=== PATIENT | female | born 1995 | race American Indian/Alaskan Native ===

== ENCOUNTER 2017-06-11 16:39 | Inpatient (IN) | payer MEDICAID ==
[2017-06-11] MEDS ORDERED: LACTATED RINGERS 500 ML IV ONE (16:48)
[2017-06-11 17:09] LABS: Bilirubin,Urine NEG (Negative); Blood,Urine NEG (Negative); Ketones,Urine 20 mg/dL (Negative); Leukocyte Esterase,Urine TR (Negative); Mucus,Urine 3+ /HPF; Nitrite,Urine NEG (Negative); WBC,Urine < 1.0 /HPF (0.0-6.0)
[2017-06-11] MEDS: BRETHINE SUB-Q PRN ×3 (17:50→18:33)
[2017-06-11 18:14] LABS: Urine Drugs of Abuse Note Disclamer
[2017-06-11] MEDS ORDERED: LACTATED RINGERS 1,000 ML IV ONE (18:36)
[2017-06-11] MEDS ORDERED: MAGNESIUM SULFATE 4GM/100ML 4 GM/100 ML BAG IV ONE (19:00)
[2017-06-11] MEDS ORDERED: BENADRYL PO PRN (19:31)
[2017-06-11] MEDS ORDERED: DEEP SEA NS PRN (19:31)
[2017-06-11] MEDS ORDERED: SUDAFED PO PRN (19:31)
[2017-06-11] MEDS ORDERED: ZOFRAN IV PRN (19:31)
[2017-06-11] MEDS ORDERED: COLACE PO PRN (19:31)
[2017-06-11] MEDS ORDERED: TYLENOL PO PRN (19:31)
[2017-06-11] MEDS ORDERED: MILK OF MAGNESIA PO PRN (19:31)
[2017-06-11] MEDS ORDERED: TUCKS PAD TP PRN (19:31)
[2017-06-11] MEDS ORDERED: ALUM-MAG HYDROX-SIMETH 200-200-20MG/5ML PO PRN (19:31)
--- NOTE | 2017-06-11 19:34 | History and Physical Report ---
History of Present Illness Date of examination: 06/11/17 Chief complaint: 32 weeks, receives care in [facility], c/o contractions. She is here visiting the [facility]. Patient reports cramping began @ 1430 and was made worse by intercourse @ 1500. Patient initially denied recent intercourse so FFN was collected prior to SVE, She later admitted to intercourse after test resulted positive. History of present illness: 21Y/O Medical HX: diabetes type 1 dx age 8 on insulin - states she has not taken any insulin since last in 2008. reports takes "an antibotic twice a day for my diabetic cysts" - does not know name of antibiotic and does not have it with her. former smoker and THC user, denies recent use during . Surgical hx: right arm for "diabetic cysts' denies HX STI OB hx: began care @ 8 weeks with [facility] in [place], [place]. Dr. Arreaga. assigned EDC 08/06/17 by LMP reports passing 1hGTT, no problems with . Patient was not referred to perinatologist by primary OBGYN. 2009 - Vaginal del @ 32 weeks, 4#, PTL with PROM. 2012 - SAB Past History Past Medical History: diabetes Past Surgical History: other (right arm - diabetic cyst) [employer] History: denies: chlamydia, gonorrhea, hepatitis B, hepatitis C, herpes, HIV , syphilis, trichomonas Social history: single - Obstetrical History Expected Date of Delivery: 08/06/17 Actual Gestation: 32 Week(s) 0 Day(s) : 3 Para: 1 Hx # Term Pregnancies: 0 Number of Pregnancies: 1 Spontaneous Abortions: 1 Induced : 0 Number of Living Children: 1 Medications and Allergies Allergies Allergy/AdvReac Type Severity Reaction Status Date / Time No Known Allergies Allergy Unverified 06/11/17 16:48 Home Medications Medication Instructions Recorded Confirmed Last Taken Type No Known Home Medications [No 06/11/17 06/11/17 Unknown History Reported Home Medications] Active Meds: Active Medications Betamethasone Acet/Betameth SodPhos (Celestone Soluspan) 12 mg IM Q24H GIA Lactated Ringer's (Lactated Ringers) 1,000 mls @ 999 mls/hr IV BOLUS ONE Stop: 06/11/17 19:36 Magnesium Sulfate (Magnesium Sulfate 40gm/1000ml) 40 gm in 1,000 mls @ 50 mls/ hr IV DIRECT GIA PRN Reason: 2 GM/HR Lactated Ringer's (Lactated Ringers) 1,000 mls @ 75 mls/hr IV DIRECT GIA Terbutaline Sulfate (Brethine) 0.25 mg SUB-Q ONCE PRN PRN Reason: contractions Last Admin: 06/11/17 18:33 Dose: 0.25 mg Review of Systems All systems: negative - Vital Signs Vital signs: Vital Signs Pulse BP 72 125/79 06/11/17 16:54 06/11/17 16:54 Temp Pulse Resp BP Pulse Ox 98.6 F 107 H 18 131/65 99 06/11/17 17:09 06/11/17 19:10 06/11/17 17:09 06/11/17 18:54 06/11/17 19:10 - Physical Exam Breasts: Positive: normal Cardiovascular: Regular rate Lungs: Positive: Clear to auscultation, Normal air movement Abdomen: Positive: normal appearance, soft Genitourinary (Female): Positive: normal external genitalia, normal perenium Vulva: both: normal Vagina: Positive: normal moisture Uterus: Positive: normal size Anus/Rectum: Positive: normal perianal skin Extremities: Positive: normal Deep Tendon Reflex Grade: Normal +2 - Obstetrical FHR: category 1 Uterine Contraction Monitor Mode: External Cervical Dilatation: 2 (posterior) Cervical Effacement Percentage: 40 station: -1 Uterine Contraction Frequency (min): 3-5 Uterine Contraction Pattern: Regular Uterine Tone Measurement Phase: Contraction Uterine Contraction Intensity: Mild Results All other labs normal. Assessment and Plan 21y/o @ 32w0d, labor, GBS unknown, hx labor and delivery with last 2008. Plan for Mag sulfate, steroids and AMFM and NICU consult. Admission orders in EMR. Nursing staff to obtain records from [facility] fax # [phone]. Dr. Bettencourt consulted. - Patient Problems (1) 32 weeks gestation of Current Visit: Yes Status: Acute (2) labor in third trimester Onset Date: 06/11/17 Current Visit: Yes Status: Acute Qualifiers: labor delivery status: P Fetus number: single or unspecified fetus
[2017-06-11] MEDS ORDERED: LACTATED RINGERS 1,000 ML IV SCH (20:00)
[2017-06-11] MEDS: MAGNESIUM SULFATE 40GM/1000ML 40 GM/1,000 ML BAG IV SCH (20:33)
--- NOTE | 2017-06-11 20:36 | Ultrasound Report ---
FINAL REPORT PROCEDURE: US OB \T\gt; = 14 WEEKS FETUS TECHNIQUE: Real-time transabdominal sonography of the uterus, placenta, amniotic fluid, adnexa, and fetus was performed with image documentation. Measurements were obtained to determine age/size. M-mode Doppler was used to document heartbeat. CPT 15583 HISTORY: LABOR WALK IN COMPARISON: No prior studies are available for comparison. FINDINGS: ADDITIONAL GESTATION: None. GENERAL: IUP: Single living intrauterine . Position: Cephalic Placental position: Anterior grade 1, without previa. Amniotic fluid volume: Normal. MATERNAL: Uterus: Within normal limits. Cervical length: 2.4 cm. Internal Os: Closed. FETUS: Heart rate and rhythm: 154 beats per minute anatomic survey: Normal. MEASUREMENTS: BPD: 8.2 centimeters corresponding to 33 weeks and 0 days HC: 30.2 centimeters corresponding to 33 weeks and 4 days AC: 29.6 centimeters corresponding to 33 weeks 3 days FL: 6.5 centimeters corresponding to 33 weeks and 3 days Mean Gestational Age (composite criteria): 33 weeks and 2 days Ratio biometry: Normal. Estimated Weight: 2198 grams. Interval growth: Not applicable Estimated Due Date (earliest scan): 07/28/2017 IMPRESSION: Single intrauterine gestation at 33 weeks and 2 days. Estimated due date: 07/28/2017. Normal survey with appropriate growth.
[2017-06-11 20:46] LABS: Basophils % (Auto) 0.3 % (0.0-1.8); Eosinophils % (Auto) 0.2 % (0.0-4.3); Hematocrit 25.9 % (30.3-42.9); Hemoglobin 8.5 gm/dl (10.1-14.3); Mean Corpuscular HGB Conc 33 % (30-34); Mean Corpuscular Volume 79 fl (79-97); Platelet Count 263 K/mm3 (140-440); Red Cell Distribution Width 16.6 % (13.2-15.2); White Blood Count 10.7 K/mm3 (4.5-11.0)
[2017-06-11 20:47] LABS: Mean Corpuscular Hemoglobin 26 pg (28-32)
[2017-06-11] MEDS: CELESTONE SOLUSPAN IM SCH (20:53)
[2017-06-11 20:55] LABS: Alanine Aminotransferase 7 units/L (7-56); Albumin/Globulin Ratio 0.8 %; Alkaline Phosphatase 104 units/L (35-129); Anion Gap 21 mmol/L; Blood Urea Nitrogen 5 mg/dL (7-17); Calcium 8.2 mg/dL (8.4-10.2); Carbon Dioxide 17 mmol/L (22-30); Chloride 100.6 mmol/L (98-107); Glucose 103 mg/dL (65-100); Sodium 136 mmol/L (137-145); Total Protein 6.7 g/dL (6.3-8.2)
[2017-06-11] MEDS: AMBIEN PO PRN (22:59)
[2017-06-12] MEDS: LACTATED RINGERS 1,000 ML IV SCH (05:10)
--- NOTE | 2017-06-12 06:55 | Progress Note ---
Assessment and Plan - Patient Problems (1) 32 weeks gestation of Current Visit: Yes Status: Acute Plan to address problem: Pt sleeping soundly easily aroused. Pt states she perceives some mild ctx. VSS Uterus soft. MGSO4 infusing 0600 Mag level drawn Not resulted at time of note. Category 1 strip. IUP @ 32w1d with+fFN, poss PTL Pt had previous delivery @ 32 weeks. Pt receives PNC in [facility]. Second dose BMZ due 2052 today. P: continue POC. Consult with . Subjective - Subjective Date of service: 06/12/17 (pt c/o "small" ctx) Patient reports: movement normal Objective - Vital Signs Vital Signs: Vital Signs - 12hr 06/11/17 06/11/17 06/11/17 18:52 18:54 18:55 Temperature Pulse Rate 110 H 105 H 110 H Respiratory Rate Blood Pressure 131/65 O2 Sat by Pulse 99 99 99 Oximetry 06/11/17 06/11/17 06/11/17 19:00 19:05 19:10 Temperature Pulse Rate 119 H 105 H 107 H Respiratory Rate Blood Pressure O2 Sat by Pulse 99 99 99 Oximetry 06/11/17 06/11/17 06/11/17 19:33 19:35 19:38 Temperature Pulse Rate 101 H 100 H 104 H Respiratory Rate Blood Pressure 127/69 O2 Sat by Pulse 93 99 Oximetry 06/11/17 06/11/17 06/11/17 19:43 19:48 19:56 Temperature Pulse Rate 92 H 102 H 103 H Respiratory Rate Blood Pressure O2 Sat by Pulse 99 99 99 Oximetry 06/11/17 06/11/17 06/11/17 20:01 20:16 20:17 Temperature Pulse Rate 94 H 80 94 H Respiratory Rate Blood Pressure O2 Sat by Pulse 99 90 98 Oximetry 06/11/17 06/11/17 06/11/17 20:22 20:27 20:31 Temperature 98.7 F Pulse Rate 93 H 97 H 99 H Respiratory 18 Rate Blood Pressure 127/69 O2 Sat by Pulse 99 99 99 Oximetry 06/11/17 06/11/17 06/11/17 20:32 20:37 20:42 Temperature Pulse Rate 91 H 95 H 104 H Respiratory Rate Blood Pressure O2 Sat by Pulse 99 100 99 Oximetry 06/11/17 06/11/17 06/11/17 20:47 20:52 20:57 Temperature Pulse Rate 105 H 95 H 102 H Respiratory Rate Blood Pressure O2 Sat by Pulse 100 99 99 Oximetry 06/11/17 06/11/17 06/11/17 21:02 21:07 21:12 Temperature Pulse Rate 89 116 H 90 Respiratory Rate Blood Pressure O2 Sat by Pulse 99 99 100 Oximetry 06/11/17 06/11/17 06/11/17 21:17 21:22 21:24 Temperature Pulse Rate 99 H 96 H 91 H Respiratory Rate Blood Pressure 123/58 O2 Sat by Pulse 99 98 Oximetry 06/11/17 06/11/17 06/11/17 21:27 21:32 21:37 Temperature Pulse Rate 82 85 85 Respiratory Rate Blood Pressure O2 Sat by Pulse 100 96 99 Oximetry 06/11/17 06/11/17 06/11/17 21:42 21:47 21:52 Temperature Pulse Rate 78 94 H 98 H Respiratory Rate Blood Pressure O2 Sat by Pulse 99 99 99 Oximetry 06/11/17 06/11/17 06/11/17 21:54 21:57 22:02 Temperature Pulse Rate 79 91 H 90 Respiratory Rate Blood Pressure 101/62 O2 Sat by Pulse 100 100 Oximetry 06/11/17 06/11/17 06/11/17 22:12 22:17 22:22 Temperature Pulse Rate 81 82 80 Respiratory Rate Blood Pressure O2 Sat by Pulse 99 99 99 Oximetry 06/11/17 06/11/17 06/11/17 22:23 22:27 22:32 Temperature Pulse Rate 79 93 H 84 Respiratory Rate Blood Pressure 118/63 O2 Sat by Pulse 99 99 Oximetry 06/11/17 06/11/17 06/11/17 22:37 22:42 22:47 Temperature Pulse Rate 85 82 80 Respiratory Rate Blood Pressure O2 Sat by Pulse 99 99 100 Oximetry 06/11/17 06/11/17 06/11/17 22:53 22:54 22:58 Temperature Pulse Rate 89 90 89 Respiratory Rate Blood Pressure 122/75 O2 Sat by Pulse 99 100 Oximetry 06/11/17 06/11/17 06/11/17 23:03 23:08 23:24 Temperature Pulse Rate 90 90 85 Respiratory Rate Blood Pressure 122/71 O2 Sat by Pulse 99 98 Oximetry 06/11/17 06/12/17 06/12/17 23:53 00:23 00:53 Temperature Pulse Rate 94 H 96 H 88 Respiratory Rate Blood Pressure 124/64 139/77 137/79 O2 Sat by Pulse Oximetry 06/12/17 06/12/17 06/12/17 01:23 01:28 01:32 Temperature Pulse Rate 83 89 89 Respiratory Rate Blood Pressure 134/77 O2 Sat by Pulse 98 94 Oximetry 06/12/17 06/12/17 06/12/17 01:33 01:38 01:43 Temperature Pulse Rate 97 H 89 94 H Respiratory Rate Blood Pressure O2 Sat by Pulse 98 97 98 Oximetry 06/12/17 06/12/17 06/12/17 01:53 01:55 02:00 Temperature Pulse Rate 88 99 H 101 H Respiratory Rate Blood Pressure 133/75 O2 Sat by Pulse 98 98 Oximetry 06/12/17 06/12/17 06/12/17 02:08 02:13 02:16 Temperature Pulse Rate 93 H 101 H 112 H Respiratory Rate Blood Pressure O2 Sat by Pulse 97 98 94 Oximetry 06/12/17 06/12/17 06/12/17 02:18 02:23 02:24 Temperature Pulse Rate 91 H 87 82 Respiratory Rate Blood Pressure 118/58 O2 Sat by Pulse 98 100 Oximetry 06/12/17 06/12/17 06/12/17 02:28 02:33 02:38 Temperature Pulse Rate 91 H 88 90 Respiratory Rate Blood Pressure O2 Sat by Pulse 98 98 98 Oximetry 06/12/17 06/12/17 06/12/17 02:43 02:48 02:53 Temperature Pulse Rate 81 89 88 Respiratory Rate Blood Pressure 132/68 O2 Sat by Pulse 98 98 97 Oximetry 06/12/17 06/12/17 06/12/17 02:58 03:03 03:08 Temperature Pulse Rate 89 89 91 H Respiratory Rate Blood Pressure O2 Sat by Pulse 98 98 97 Oximetry 06/12/17 06/12/17 06/12/17 03:13 03:18 03:23 Temperature Pulse Rate 87 94 H 93 H Respiratory Rate Blood Pressure 124/70 O2 Sat by Pulse 98 96 96 Oximetry 06/12/17 06/12/17 06/12/17 03:28 03:33 03:38 Temperature Pulse Rate 90 97 H 87 Respiratory Rate Blood Pressure O2 Sat by Pulse 96 98 98 Oximetry 06/12/17 06/12/17 06/12/17 03:42 03:48 03:53 Temperature Pulse Rate 78 99 H 86 Respiratory Rate Blood Pressure 125/71 O2 Sat by Pulse 93 97 98 Oximetry 06/12/17 06/12/17 06/12/17 03:58 04:03 04:08 Temperature Pulse Rate 89 91 H 90 Respiratory Rate Blood Pressure O2 Sat by Pulse 97 96 98 Oximetry 06/12/17 06/12/17 06/12/17 04:13 04:18 04:23 Temperature Pulse Rate 87 91 H 90 Respiratory Rate Blood Pressure 100/57 O2 Sat by Pulse 97 96 97 Oximetry 06/12/17 06/12/17 06/12/17 04:28 04:33 04:38 Temperature Pulse Rate 84 82 82 Respiratory Rate Blood Pressure O2 Sat by Pulse 97 95 95 Oximetry 06/12/17 06/12/17 06/12/17 04:43 04:48 04:53 Temperature Pulse Rate 79 89 81 Respiratory Rate Blood Pressure 107/55 O2 Sat by Pulse 96 96 97 Oximetry 06/12/17 06/12/17 06/12/17 04:58 05:03 05:08 Temperature Pulse Rate 86 83 80 Respiratory Rate Blood Pressure O2 Sat by Pulse 97 98 97 Oximetry 06/12/17 06/12/17 06/12/17 05:13 05:18 05:23 Temperature Pulse Rate 83 78 81 Respiratory Rate Blood Pressure 108/58 O2 Sat by Pulse 96 97 96 Oximetry 06/12/17 06/12/17 06/12/17 05:27 05:28 05:33 Temperature Pulse Rate 85 85 87 Respiratory Rate Blood Pressure O2 Sat by Pulse 94 94 95 Oximetry 06/12/17 06/12/17 06/12/17 05:34 05:38 05:43 Temperature Pulse Rate 85 86 86 Respiratory Rate Blood Pressure O2 Sat by Pulse 94 96 96 Oximetry 06/12/17 06/12/17 06/12/17 05:46 05:48 05:53 Temperature Pulse Rate 84 87 96 H Respiratory Rate Blood Pressure O2 Sat by Pulse 94 96 97 Oximetry 06/12/17 06/12/17 06/12/17 05:54 05:58 06:03 Temperature Pulse Rate 88 80 85 Respiratory Rate Blood Pressure 102/53 O2 Sat by Pulse 97 97 Oximetry 06/12/17 06/12/17 06/12/17 06:08 06:13 06:18 Temperature Pulse Rate 88 85 87 Respiratory Rate Blood Pressure O2 Sat by Pulse 100 98 97 Oximetry 06/12/17 06/12/17 06/12/17 06:23 06:28 06:33 Temperature Pulse Rate 82 86 88 Respiratory Rate Blood Pressure 120/69 O2 Sat by Pulse 97 97 96 Oximetry 06/12/17 06/12/17 06:38 06:43 Temperature Pulse Rate 91 H 86 Respiratory Rate Blood Pressure O2 Sat by Pulse 98 98 Oximetry - Exam Breasts: deferred Cardiovascular: Regular rate Lungs: Normal air movement Abdomen: Present: normal appearance, soft. Absent: distention, tenderness Uterus: Present: normal FHR: auscultation normal, category 1 Uterine Contraction Monitor Mode: External Uterine Contraction Pattern: Absent (no ctx recorded on EFM; toco adjusted No ctx recorded) Uterine Tone Measurement Phase: Resting Extremities: normal Deep Tendon Reflex Grade: Normal +2 - Labs Labs: Abnormal Labs 06/11/17 06/11/17 06/12/17 20:00 20:00 01:47 RBC 3.30 L Hgb 8.5 L Hct 25.9 L MCH 26 L RDW 16.6 H Seg Neutrophils % 77.6 H Seg Neutrophils # 8.3 H Sodium 136 L Potassium 3.0 L Carbon Dioxide 17 L BUN 5 L Creatinine 0.5 L Glucose 103 H Calcium 8.2 L Magnesium 4.10 H Albumin 3.0 L Laboratory Results - last 24 hr 06/11/17 06/11/17 06/11/17 16:49 16:49 17:25 WBC RBC Hgb Hct MCV MCH MCHC RDW Plt Count Lymph % (Auto) Owen % (Auto) Eos % (Auto) Baso % (Auto) Lymph # Owen # Eos # Baso # Seg Neutrophils % Seg Neutrophils # Sodium Potassium Chloride Carbon Dioxide Anion Gap BUN Creatinine Estimated GFR BUN/Creatinine Ratio Glucose POC Glucose Calcium Magnesium Total Bilirubin AST ALT Alkaline Phosphatase Total Protein Albumin Albumin/Globulin Ratio Urine Color Yellow Urine Turbidity Clear Urine pH 6.0 Ur Specific [place] 1.024 Urine Protein 30 mg/dl Urine Glucose (UA) Neg Urine Ketones 20 Urine Blood Neg Urine Nitrite Neg Urine Bilirubin Neg Urine Urobilinogen 2.0 Ur Leukocyte Esterase Tr Urine WBC (Auto) < 1.0 Urine RBC (Auto) 1.0 U Epithel Cells (Auto) 8.0 Urine Mucus 3+ Urine Opiates Screen Presumptive negative Urine Methadone Screen Presumptive negative Ur Barbiturates Screen Presumptive negative Ur Phencyclidine Scrn Presumptive negative Ur Amphetamines Screen Presumptive negative U Benzodiazepines Scrn Presumptive negative Urine Cocaine Screen Presumptive negative U Marijuana (THC) Screen Presumptive positive Drugs of Abuse Note Disclamer Fibronectin Positive Blood Type Antibody Screen DIMPLE Antibody Screen 06/11/17 06/11/17 06/11/17 18:16 20:00 20:00 WBC 10.7 RBC 3.30 L Hgb 8.5 L Hct 25.9 L MCV 79 MCH 26 L MCHC 33 RDW 16.6 H Plt Count 263 Lymph % (Auto) 16.3 Owen % (Auto) 5.6 Eos % (Auto) 0.2 Baso % (Auto) 0.3 Lymph # 1.7 Owen # 0.6 Eos # 0.0 Baso # 0.0 Seg Neutrophils % 77.6 H Seg Neutrophils # 8.3 H Sodium Potassium Chloride Carbon Dioxide Anion Gap BUN Creatinine Estimated GFR BUN/Creatinine Ratio Glucose POC Glucose 72 Calcium Magnesium Total Bilirubin AST ALT Alkaline Phosphatase Total Protein Albumin Albumin/Globulin Ratio Urine Color Urine Turbidity Urine pH Ur Specific [place] Urine Protein Urine Glucose (UA) Urine Ketones Urine Blood Urine Nitrite Urine Bilirubin Urine Urobilinogen Ur Leukocyte Esterase Urine WBC (Auto) Urine RBC (Auto) U Epithel Cells (Auto) Urine Mucus Urine Opiates Screen Urine Methadone Screen Ur Barbiturates Screen Ur Phencyclidine Scrn Ur Amphetamines Screen U Benzodiazepines Scrn Urine Cocaine Screen U Marijuana (THC) Screen Drugs of Abuse Note Fibronectin Blood Type A POSITIVE Antibody Screen TNR DIMPLE Antibody Screen Negative 06/11/17 06/12/17 20:00 01:47 WBC RBC Hgb Hct MCV MCH MCHC RDW Plt Count Lymph % (Auto) Owen % (Auto) Eos % (Auto) Baso % (Auto) Lymph # Owen # Eos # Baso # Seg Neutrophils % Seg Neutrophils # Sodium 136 L Potassium 3.0 L Chloride 100.6 Carbon Dioxide 17 L Anion Gap 21 BUN 5 L Creatinine 0.5 L Estimated GFR > 60 BUN/Creatinine Ratio 10.00 Glucose 103 H POC Glucose Calcium 8.2 L Magnesium 4.10 H Total Bilirubin 0.20 AST 13 ALT 7 Alkaline Phosphatase 104 Total Protein 6.7 Albumin 3.0 L Albumin/Globulin Ratio 0.8 Urine Color Urine Turbidity Urine pH Ur Specific [place] Urine Protein Urine Glucose (UA) Urine Ketones Urine Blood Urine Nitrite Urine Bilirubin Urine Urobilinogen Ur Leukocyte Esterase Urine WBC (Auto) Urine RBC (Auto) U Epithel Cells (Auto) Urine Mucus Urine Opiates Screen Urine Methadone Screen Ur Barbiturates Screen Ur Phencyclidine Scrn Ur Amphetamines Screen U Benzodiazepines Scrn Urine Cocaine Screen U Marijuana (THC) Screen Drugs of Abuse Note Fibronectin Blood Type Antibody Screen DIMPLE Antibody Screen
[2017-06-12] MEDS: PRENATAL VITAMIN PO SCH (10:25)
[2017-06-12] MEDS: MAGNESIUM SULFATE 40GM/1000ML 40 GM/1,000 ML BAG IV SCH (16:39)
[2017-06-12] MEDS: CELESTONE SOLUSPAN IM SCH (21:13)
[2017-06-12] MEDS: AMBIEN PO PRN (21:13)
[2017-06-13] MEDS: LACTATED RINGERS 1,000 ML IV SCH (07:23)
--- NOTE | 2017-06-13 07:34 | Progress Note ---
Assessment and Plan 21y/o @ 32+2weeks, labor, BMZ complete. patient doing well, no complaints. Denies ctx, srom or bleeding. reports + fm. no ctx noted on toco. second BMZ completed last night around 2100. Mag sulfate d/c'd by Dr. De León. Patient desires d/c and will return to [facility] to her primary OBGYN. Will consult Dr. Abreu for discharge planning. - Patient Problems (1) 32 weeks gestation of Current Visit: Yes Status: Acute (2) labor in third trimester Onset Date: 06/11/17 Current Visit: Yes Status: Acute Qualifiers: labor delivery status: P Fetus number: single or unspecified fetus Subjective - Subjective Date of service: 06/13/17 Principal diagnosis: IUP @ 32w, labor, s/p BMZ x 2 Interval history: 21Y/O Medical HX: diabetes type 1 dx age 8 on insulin - states she has not taken any insulin since last in 2008. reports takes "an antibotic twice a day for my diabetic cysts" - does not know name of antibiotic and does not have it with her. former smoker and THC user, denies recent use during . Surgical hx: right arm for "diabetic cysts' denies HX STI OB hx: began care @ 8 weeks with [facility] in [place], [place]. Dr. Arreaga. assigned EDC 08/06/17 by LMP reports passing 1hGTT, no problems with . Patient was not referred to perinatologist by primary OBGYN. 2008 - Vaginal del @ 32 weeks, 4#, PTL with PROM. 2011 - SAB Patient reports: movement normal, no new complaints, no loss of fluid, no vaginal bleeding, no contractions Objective - Vital Signs Vital Signs: Vital Signs - 12hr 06/12/17 06/12/17 06/12/17 19:53 20:00 20:03 Temperature 97.6 F Pulse Rate 88 90 90 Respiratory 18 Rate Blood Pressure 110/64 112/65 112/65 O2 Sat by Pulse Oximetry 06/12/17 06/12/17 06/12/17 20:23 20:53 21:23 Temperature Pulse Rate 90 82 81 Respiratory Rate Blood Pressure 111/62 114/70 115/73 O2 Sat by Pulse Oximetry 07/06/12/17 06/12/17 21:53 22:23 22:53 Temperature Pulse Rate 90 83 90 Respiratory Rate Blood Pressure 130/72 124/76 131/74 O2 Sat by Pulse Oximetry 06/12/17 06/12/17 06/12/17 23:14 23:19 23:24 Temperature Pulse Rate 90 89 84 Respiratory Rate Blood Pressure 116/61 O2 Sat by Pulse 99 99 100 Oximetry 06/12/17 06/12/17 06/13/17 23:28 23:53 00:23 Temperature Pulse Rate 105 H 90 88 Respiratory Rate Blood Pressure 119/63 105/57 O2 Sat by Pulse 94 Oximetry 06/13/17 06/13/17 06/13/17 00:53 01:23 01:54 Temperature Pulse Rate 84 82 104 H Respiratory Rate Blood Pressure 107/52 104/55 98/54 O2 Sat by Pulse Oximetry 06/13/17 06/13/17 06/13/17 02:23 02:53 03:23 Temperature Pulse Rate 87 93 H 77 Respiratory Rate Blood Pressure 104/54 122/57 115/59 O2 Sat by Pulse Oximetry 06/13/17 06/13/17 06/13/17 03:54 04:24 04:53 Temperature Pulse Rate 75 75 84 Respiratory Rate Blood Pressure 107/63 95/51 111/60 O2 Sat by Pulse Oximetry 06/13/17 06/13/17 06/13/17 05:23 05:53 06:23 Temperature Pulse Rate 81 91 H 77 Respiratory Rate Blood Pressure 106/56 127/57 138/62 O2 Sat by Pulse Oximetry 06/13/17 06:53 Temperature Pulse Rate 84 Respiratory Rate Blood Pressure 127/74 O2 Sat by Pulse Oximetry - Exam Breasts: normal Cardiovascular: Regular rate Lungs: Clear to auscultation, Normal air movement Abdomen: Present: normal appearance, soft Uterus: Present: normal FHR: auscultation normal (currently off efm, reviewed past tracing reassuring) Uterine Contraction Monitor Mode: External Uterine Contraction Pattern: Absent Uterine Tone Measurement Phase: Resting Extremities: normal Deep Tendon Reflex Grade: Normal +2 - Labs Labs: Abnormal Labs 06/11/17 06/11/17 06/12/17 20:00 20:00 01:47 RBC 3.30 L Hgb 8.5 L Hct 25.9 L MCH 26 L RDW 16.6 H Seg Neutrophils % 77.6 H Seg Neutrophils # 8.3 H Sodium 136 L Potassium 3.0 L Carbon Dioxide 17 L BUN 5 L Creatinine 0.5 L Glucose 103 H POC Glucose Calcium 8.2 L Magnesium 4.10 H Albumin 3.0 L 06/12/17 06/12/17 06/12/17 06:10 11:12 18:29 RBC Hgb Hct MCH RDW Seg Neutrophils % Seg Neutrophils # Sodium Potassium Carbon Dioxide BUN Creatinine Glucose POC Glucose 161 H Calcium Magnesium 4.70 H 5.10 H Albumin 06/12/17 06/13/17 06/13/17 18:34 00:40 06:06 RBC Hgb Hct MCH RDW Seg Neutrophils % Seg Neutrophils # Sodium Potassium Carbon Dioxide BUN Creatinine Glucose POC Glucose 156 H Calcium Magnesium 5.30 H 5.30 H Albumin Laboratory Results - last 24 hr 06/11/17 06/12/17 06/12/17 20:00 11:12 18:29 POC Glucose 161 H Magnesium 5.10 H RPR Nonreactive 06/12/17 06/13/17 06/13/17 18:34 00:40 06:06 POC Glucose 156 H Magnesium 5.30 H 5.30 H RPR
--- NOTE | 2017-06-13 07:50 | Progress Note ---
Assessment and Plan IMP: 1. IUP 32+ weeks 2. PTL, resolved REC: 1. Agree with discharge home if remains stable. 2. No further tocolysis indicated. Subjective - Subjective Date of service: 06/13/17 Principal diagnosis: IUP @ 32w, labor, s/p BMZ x 2 Patient reports: movement normal, no new complaints, no loss of fluid, no vaginal bleeding, no contractions Objective - Vital Signs Vital Signs: Vital Signs - 12hr 06/12/17 06/12/17 06/12/17 19:53 20:00 20:03 Temperature 97.6 F Pulse Rate 88 90 90 Respiratory 18 Rate Blood Pressure 110/64 112/65 112/65 O2 Sat by Pulse Oximetry 06/12/17 06/12/17 06/12/17 20:23 20:53 21:23 Temperature Pulse Rate 90 82 81 Respiratory Rate Blood Pressure 111/62 114/70 115/73 O2 Sat by Pulse Oximetry 06/12/17 06/12/17 06/12/17 21:53 22:23 22:53 Temperature Pulse Rate 90 83 90 Respiratory Rate Blood Pressure 130/72 124/76 131/74 O2 Sat by Pulse Oximetry 06/12/17 06/12/17 06/12/17 23:14 23:19 23:24 Temperature Pulse Rate 90 89 84 Respiratory Rate Blood Pressure 116/61 O2 Sat by Pulse 99 99 100 Oximetry 06/12/17 06/12/17 06/13/17 23:28 23:53 00:23 Temperature Pulse Rate 105 H 90 88 Respiratory Rate Blood Pressure 119/63 105/57 O2 Sat by Pulse 94 Oximetry 06/13/17 06/13/17 06/13/17 00:53 01:23 01:54 Temperature Pulse Rate 84 82 104 H Respiratory Rate Blood Pressure 107/52 104/55 98/54 O2 Sat by Pulse Oximetry 06/13/17 06/13/17 06/13/17 02:23 02:53 03:23 Temperature Pulse Rate 87 93 H 77 Respiratory Rate Blood Pressure 104/54 122/57 115/59 O2 Sat by Pulse Oximetry 06/13/17 06/13/17 06/13/17 03:54 04:24 04:53 Temperature Pulse Rate 75 75 84 Respiratory Rate Blood Pressure 107/63 95/51 111/60 O2 Sat by Pulse Oximetry 08/11/2906/13/17 06/13/17 05:23 05:53 06:23 Temperature Pulse Rate 81 91 H 77 Respiratory Rate Blood Pressure 106/56 127/57 138/62 O2 Sat by Pulse Oximetry 06/13/17 06/13/17 06/13/17 06:53 07:38 07:39 Temperature 97.7 F Pulse Rate 84 76 76 Respiratory 18 Rate Blood Pressure 127/74 121/71 121/71 O2 Sat by Pulse Oximetry - Exam Narrative Exam: Resting comfortably in bed; appears well. Abdomen: Present: soft. Absent: tenderness - Labs Labs: Abnormal Labs 06/11/17 06/11/17 06/12/17 20:00 20:00 01:47 RBC 3.30 L Hgb 8.5 L Hct 25.9 L MCH 26 L RDW 16.6 H Seg Neutrophils % 77.6 H Seg Neutrophils # 8.3 H Sodium 136 L Potassium 3.0 L Carbon Dioxide 17 L BUN 5 L Creatinine 0.5 L Glucose 103 H POC Glucose Calcium 8.2 L Magnesium 4.10 H Albumin 3.0 L 06/12/17 06/12/17 06/12/17 06:10 11:12 18:29 RBC Hgb Hct MCH RDW Seg Neutrophils % Seg Neutrophils # Sodium Potassium Carbon Dioxide BUN Creatinine Glucose POC Glucose 161 H Calcium Magnesium 4.70 H 5.10 H Albumin 06/12/17 06/13/17 06/13/17 18:34 00:40 06:06 RBC Hgb Hct MCH RDW Seg Neutrophils % Seg Neutrophils # Sodium Potassium Carbon Dioxide BUN Creatinine Glucose POC Glucose 156 H Calcium Magnesium 5.30 H 5.30 H Albumin 06/13/17 06:28 RBC Hgb Hct MCH RDW Seg Neutrophils % Seg Neutrophils # Sodium Potassium Carbon Dioxide BUN Creatinine Glucose POC Glucose Calcium Magnesium 5.40 H Albumin Laboratory Results - last 24 hr 06/11/17 06/12/17 06/12/17 20:00 11:12 18:29 POC Glucose 161 H Magnesium 5.10 H RPR Nonreactive 06/12/17 06/13/17 06/13/17 18:34 00:40 06:06 POC Glucose 156 H Magnesium 5.30 H 5.30 H RPR 06/13/17 06:28 POC Glucose Magnesium 5.40 H RPR
[2017-06-13] MEDS: PRENATAL VITAMIN PO SCH (09:04)
--- NOTE | 2017-06-13 12:05 | Progress Note ---
Assessment and Plan no change in SVE, patient states she lives 45 minutes away and her mother is coming to pick her up. Advised to refrain from sex until cleared by her OBGYN, she should call and make appointment this week. All questions addressed, verbalized understanding. - Patient Problems (1) 32 weeks gestation of Current Visit: Yes Status: Acute (2) labor in third trimester Onset Date: 06/11/17 Current Visit: Yes Status: Acute Qualifiers: labor delivery status: P Fetus number: single or unspecified fetus Subjective - Subjective Date of service: 06/13/17 Principal diagnosis: IUP @ 32w, labor, s/p BMZ x 2 Interval history: 21Y/O Medical HX: diabetes type 1 dx age 8 on insulin - states she has not taken any insulin since last in 2008. reports takes "an antibotic twice a day for my diabetic cysts" - does not know name of antibiotic and does not have it with her. former smoker and THC user, denies recent use during . Surgical hx: right arm for "diabetic cysts' denies HX STI OB hx: began care @ 8 weeks with [facility] in [place], [place]. Dr. Arreaga. assigned EDC 08/06/17 by LMP reports passing 1hGTT, no problems with . Patient was not referred to perinatologist by primary OBGYN. 2008 - Vaginal del @ 32 weeks, 4#, PTL with PROM. 2011 - SAB Patient reports: movement normal, no new complaints, no loss of fluid, no vaginal bleeding, no contractions Objective - Vital Signs Vital Signs: Vital Signs - 12hr 06/13/17 06/13/17 06/13/17 00:23 00:53 01:23 Temperature Pulse Rate 88 84 82 Respiratory Rate Blood Pressure 105/57 107/52 104/55 06/13/17 06/13/17 06/13/17 01:54 02:23 02:53 Temperature Pulse Rate 104 H 87 93 H Respiratory Rate Blood Pressure 98/54 104/54 122/57 06/13/17 06/13/17 06/13/17 03:23 03:54 04:24 Temperature Pulse Rate 77 75 75 Respiratory Rate Blood Pressure 115/59 107/63 95/51 06/13/17 06/13/17 06/13/17 04:53 05:23 05:53 Temperature Pulse Rate 84 81 91 H Respiratory Rate Blood Pressure 111/60 106/56 127/57 06/13/17 06/13/17 06/13/17 06:23 06:53 07:38 Temperature 97.7 F Pulse Rate 77 84 76 Respiratory 18 Rate Blood Pressure 138/62 127/74 121/71 06/13/17 07:39 Temperature Pulse Rate 76 Respiratory Rate Blood Pressure 121/71 - Exam Breasts: normal Cardiovascular: Regular rate Lungs: Clear to auscultation, Normal air movement Abdomen: Present: normal appearance, soft Vulva: both: normal Uterus: Present: normal FHR: auscultation normal Uterine Contraction Monitor Mode: External Cervical Dilatation: 1.5 (BALOTABLE) Cervical Effacement Percentage: 40 station: -3 Uterine Contraction Pattern: Absent Uterine Tone Measurement Phase: Resting - Labs Labs: Abnormal Labs 06/11/17 06/11/17 06/12/17 20:00 20:00 01:47 RBC 3.30 L Hgb 8.5 L Hct 25.9 L MCH 26 L RDW 16.6 H Seg Neutrophils % 77.6 H Seg Neutrophils # 8.3 H Sodium 136 L Potassium 3.0 L Carbon Dioxide 17 L BUN 5 L Creatinine 0.5 L Glucose 103 H POC Glucose Calcium 8.2 L Magnesium 4.10 H Albumin 3.0 L 06/12/17 06/12/17 06/12/17 06:10 11:12 18:29 RBC Hgb Hct MCH RDW Seg Neutrophils % Seg Neutrophils # Sodium Potassium Carbon Dioxide BUN Creatinine Glucose POC Glucose 161 H Calcium Magnesium 4.70 H 5.10 H Albumin 06/12/17 06/13/17 06/13/17 18:34 00:40 06:06 RBC Hgb Hct MCH RDW Seg Neutrophils % Seg Neutrophils # Sodium Potassium Carbon Dioxide BUN Creatinine Glucose POC Glucose 156 H Calcium Magnesium 5.30 H 5.30 H Albumin 06/13/17 06:28 RBC Hgb Hct MCH RDW Seg Neutrophils % Seg Neutrophils # Sodium Potassium Carbon Dioxide BUN Creatinine Glucose POC Glucose Calcium Magnesium 5.40 H Albumin Laboratory Results - last 24 hr 06/11/17 06/12/17 06/12/17 20:00 11:12 18:29 POC Glucose 161 H Magnesium 5.10 H RPR Nonreactive 06/12/17 06/13/17 06/13/17 18:34 00:40 06:06 POC Glucose 156 H Magnesium 5.30 H 5.30 H RPR 06/13/17 06:28 POC Glucose Magnesium 5.40 H RPR
--- NOTE | 2017-06-13 12:07 | Discharge Summary ---
Providers - Providers Date of Admission: 06/11/17 19:46 Date of discharge: 06/13/17 Attending physician: ROXI SEN 06/11/17 19:31 Consult to Physician [CONS] Routine Consulting Provider: NAWAF GUTIERREZ Reason For Exam: labor @ [address] consult to:: [facility] Notified:: JOEL Phone number called:: [phone] Was contact made?: Yes If yes, spoke with:: JOEL Time called:: 07:00 06/11/17 20:15 Consult to Physician [CONS] Routine Consulting Provider: FELECIA YOUNG Reason For Exam: labor @ 32weeks Place consult to:: NICU Notified:: MASON Phone number called:: [phone] Was contact made?: Yes If yes, spoke with:: MASON Time called:: 07:05 Primary care physician: ROXI SEN Hospitalization Reason for admission: labor Discharge diagnosis: other ( labor without delivery, third trimester) Hospital course: observation for PTL - magnesium sulfate and steroids. Condition at discharge: Good Disposition: DC-01 TO HOME OR SELFCARE - Discharge Diagnoses (1) 32 weeks gestation of Status: Acute (2) labor in third trimester Status: Acute Qualifiers: labor delivery status: P Fetus number: single or unspecified fetus Plan - Provider Discharge Summary Activity: routine Diet: routine Instructions: routine Additional instructions: [] Smoking cessation referral if applicable(refer to patient education folder for contact #) [] Refer to [facility]'s [facility] Booklet Call your doctor immediately for: * Fever > 100.5 * Heavy vaginal bleeding ( >1 pad per hour) * Severe persistent headache * Shortness of breath * Reddened, hot, painful area to leg or breast * Drainage or odor from incision. * Keep incision clean and dry at all times and follow doctor's instructions regarding bathing/showering - Follow up plan Follow up: ROXI SEN MD [Primary Care Provider] - 7 Days (Please schedule follow up appointment with Dr. Arreaga in 1 week, or you may call [phone] to schedule appointment with our office if you plan on delivering at [facility].)
[2017-06-13 12:26] VITALS: BP 135/75
== END 2017-06-13 13:40 | disposition home or self-care (01) | DRG 778 ==
LOC: TRG 16:39 → LD 19:46 → TRG 19:46
PROVIDERS: ADMIT Obstetrics & Gynecology; ATTEND Obstetrics & Gynecology
DX: O60.03 Preterm labor without delivery, third trimester (principal); Z3A.32 32 weeks gestation of pregnancy; O24.313 Unspecified pre-existing diabetes mellitus in pregnancy, third trimester; E11.9 Type 2 diabetes mellitus without complications
CPT/HCPCS: 36415; 76805; 80053; 80307; 81001; 82731; 82962; 83735; 85025; 86592; 86850; 86900; 86901; 87086; 87116; J0702; J3105; J3475; J7120

== ENCOUNTER 2018-12-04 02:06 | Emergency (ER) | payer MEDICAID, OTHER ==
[2018-12-04] MEDS ORDERED: NACL 0.9% 1000 ML 1,000 ML IV ONE ×3 (02:17→05:52)
[2018-12-04] MEDS ORDERED: NACL 0.9% 1000 ML 1,000 ML ONE (02:18)
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
[2018-12-04 03:04] LABS: Amphetamine Screen,Urine PRESUMPTIVE NEGATIVE; Benzodiazepines Screen,Urine PRESUMPTIVE NEGATIVE; Cannabinoid Screen,Urine PRESUMPTIVE NEGATIVE; Cocaine Screen,Urine PRESUMPTIVE NEGATIVE; Methadone Screen,Urine PRESUMPTIVE NEGATIVE; Opiate Screen,Urine PRESUMPTIVE NEGATIVE
[2018-12-04 03:22] LABS: INR 0.92 (0.87-1.13); Partial Thromboplastin Time 22.5 Sec. (24.2-36.6)
[2018-12-04 04:01] LABS: Alanine Aminotransferase 21 units/L (7-56); Albumin 4.3 g/dL (3.9-5); BUN/Creatinine Ratio 14; Blood Urea Nitrogen 10 mg/dL (7-17); Hemolysis Index 1
[2018-12-04 04:26] LABS: Hematocrit 34.3 % (30.3-42.9); Hemoglobin 10.9 gm/dl (10.1-14.3); Mean Corpuscular HGB Conc 32 % (30-34); Mean Corpuscular Volume 75 fl (79-97); Red Cell Distribution Width 19.8 % (13.2-15.2)
[2018-12-04 04:27] LABS: Free T4 (Free Thyroxine) 1.09 ng/dL (0.76-1.46)
[2018-12-04 04:28] LABS: Platelet Count 376 K/mm3 (140-440)
--- NOTE | 2018-12-04 05:04 | Cat Scan Report ---
FINAL REPORT PROCEDURE: CT HEAD/BRAIN WO CON TECHNIQUE: Computerized tomography of the head was performed without contrast material. HISTORY: altered mental status COMPARISON: No prior studies are available for comparison. FINDINGS: Skull and scalp: Normal. Paranasal sinuses: Normal. Ventricles and subarachnoid spaces: Normal. Cerebrum: No evidence of hemorrhage, acute infarction or mass . Cerebellum and brainstem: No evidence of hemorrhage, acute infarction or mass. Vasculature: Normal. Comments: None. IMPRESSION: Normal Examination
--- NOTE | 2018-12-04 05:24 | Cat Scan Report ---
FINAL REPORT PROCEDURE: CT CERVICAL SPINE WO CON TECHNIQUE: Computerized tomography of the cervical spine was performed from the skull base to T1 wit hout contrast material. HISTORY: altered mental status COMPARISON: No prior studies are available for comparison. FINDINGS: The skull base and foramen magnum are intact. The cervical vertebrae are intact. There are no fractures or malalignments. C1-2: No significant abnormality. C2-3: No significant abnormality. C3-4: No significant abnormality. C4-5: No significant abnormality. C5-6: No significant abnormality. C6-7: No significant abnormality. C7-T1: No significant abnormality. Other: The prevertebral soft tissues are normal in thickness.. IMPRESSION: No significant abnormality.
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
[2018-12-04 06:40] LABS: Anisocytosis 1+; Hypochromasia Few; Ovalocytes Few; Total Cells Counted 100
[2018-12-04 07:59] VITALS: BP 112/76
== END 2018-12-04 07:59 | disposition home or self-care (01) ==
LOC: ED 02:06
DX: S09.8XXA Other specified injuries of head, initial encounter (principal); I10 Essential (primary) hypertension; E11.9 Type 2 diabetes mellitus without complications; F17.200 Nicotine dependence, unspecified, uncomplicated; F10.129 Alcohol abuse with intoxication, unspecified; W19.XXXA Unspecified fall, initial encounter; Y93.89 Activity, other specified; Y99.8 Other external cause status; Y92.89 Other specified places as the place of occurrence of the external cause
CPT/HCPCS: 36415; 70450; 71275; 72125; 74177; 80053; 80307; 82140; 82550; 82553; 82805; 82962; 83735; 84439; 84443; 84484; 84703; 85007; 85025; 85610; 85730; 86850; 86900; 86901; 93005; 93010; 96360; 96361; 99285; G0480; J7030; Q9967; 80320

== ENCOUNTER 2018-12-28 05:09 | Emergency (ER) | payer SELFPAY ==
[2018-12-28 05:19] VITALS: BP 136/85
--- NOTE | 2018-12-28 06:16 | Emergency Department Report ---
Addendum entered and electronically signed by ALEX ALEJANDRA PA 01/01/19 07:14: Patient is diagnosed with Gen. medical exam. Patient's heart rate has improved from 123-109. Patient reports that she feels much better. Review of patient's medical chart patient has had a history of elevated heart rate. Original Note: ED Anxiety HPI - General Source: patient, family Mode of arrival: Ambulatory - History of Present Illness MD Complaint: anxiety -: During the night Previous History of Same: Yes Quality: intermittant Provoking factors: emotional stress Improves With: nothing Worsens With: nothing <ALEX ALEJANDRA - Last Filed: 12/31/18 07:28> <ROBBY PEDRO - Last Filed: 01/02/19 20:17> - General Chief Complaint: Anxiety Stated Complaint: SHAKING Time Seen by Provider: 12/28/18 05:44 - History of Present Illness Initial Comments: 23-year-old [place] female presents to the emergency room for shaking that started this morning. Patient reports she has a past medical history of seizures last one was 12/03/2018. Patient states she is not on any anti-seizure medication she is a diabetic with hypertension and currently is not taking any medication for that. Patient does note to have a drink last night. Patient states that she does not feel she had a seizure. (ALEX ALEJANDRA) - Related Data Home Medications: Home Medications Medication Instructions Recorded Confirmed Last Taken Metoprolol [Lopressor] 10 mg PO DAILY 12/04/18 12/04/18 Unknown Allergies/Adverse Reactions: Allergies Allergy/AdvReac Type Severity Reaction Status Date / Time No Known Allergies Allergy Unverified 06/11/17 16:48 ED Review of Systems Comment: All other systems reviewed and negative Psychiatric: anxiety <ALEX ALEJANDRA - Last Filed: 12/31/18 07:28> ROS: Stated complaint: SHAKING Other details as noted in HPI ED Past Medical Hx - Past Medical History Previous Medical History?: Yes Hx Hypertension: Yes Hx Diabetes: Yes (states Type I but states no meds) Hx Deep Vein Thrombosis: No Hx Renal Disease: No Hx Sickle Cell Disease: No Hx Seizures: Yes Hx Asthma: No Hx HIV: No - Surgical History Past Surgical History?: Yes Additional Surgical History: cyst removal at both arms and lower abdomen - Social History Smoking Status: Current Every Day Smoker Substance Use Type: Alcohol <ALEX ALEJANDRA - Last Filed: 12/31/18 07:28> <ROBBY PEDRO - Last Filed: 01/02/19 20:17> - Medications Home Medications: Home Medications Medication Instructions Recorded Confirmed Last Taken Type Metoprolol [Lopressor] 10 mg PO DAILY 12/04/18 12/04/18 Unknown History ED Physical Exam - General Limitations: No Limitations General appearance: alert, in no apparent distress - Head Head exam: Present: atraumatic, normocephalic - Eye Eye exam: Present: PERRL, EOMI - ENT ENT exam: Present: mucous membranes moist - Neck Neck exam: Present: normal inspection, full ROM. Absent: tenderness, lymphadenopathy - Respiratory Respiratory exam: Present: normal lung sounds bilaterally. Absent: respiratory distress - Cardiovascular Cardiovascular Exam: Present: regular rate, normal rhythm. Absent: systolic murmur, diastolic murmur, rubs, gallop - GI/Abdominal GI/Abdominal exam: Present: soft, normal bowel sounds - Expanded Neurological Exam Expanded Patient oriented to: Present: person, place, time Cranial nerves: EOM's Intact: Normal, Gag Reflex: Normal, Tongue Deviation: Normal, Nystagmus: Normal, Facial Sensation: Normal, Facial Palsy with Forehead Movement: Normal, Facial Palsy without Forehead Movement: Normal Cerebellar function: Finger to Nose: Normal, Heel to Dong: Normal, Romberg: Normal Upper motor neuron: Liborio Neglect: Normal, Pronator Drift: Normal, Babinski Sign: Normal, Sensory Extinction: Normal Sensory exam: Upper Extremity Light Touch: Normal, Upper Extremity Pin Prick: Normal, Upper Extremity Temperature: Normal, UE 2 Point Discrimination: Normal, Lower Extremity Light Touch: Normal, Lower Extremity Pin Prick: Normal Motor strength exam: RUE: 4, LUE: 4, RLE: 4, LLE: 4 Best Eye Response (Ev): (4) open spontaneously Best Motor Response (Ev): (6) obeys commands Best Verbal Response (Ev): (5) oriented Ev Total: 15 <ALEX ALEJANDRA - Last Filed: 12/31/18 07:28> Vital Signs 12/28/18 12/28/18 05:12 05:48 Temperature 98.2 F Pulse Rate 123 H 109 H Respiratory 17 Rate Blood Pressure 136/85 O2 Sat by Pulse 99 99 Oximetry ED Medical Decision Making <ALEX ALEJANDRA - Last Filed: 12/31/18 07:28> - Medical Decision Making Patient has been evaluated by this provider in fast track. Patient currently has no complaints. Blood sugar was 143. Patient has no fever or chills. Refer patient to follow up with her primary care provider in mental health. Patient verbalizes understanding (ALEX ALEJANDRA) Critical care attestation.: If time is entered above; I have spent that time in minutes in the direct care of this critically ill patient, excluding procedure time. ED Disposition Is pt being admited?: No Does the pt Need Aspirin: No <ALEX ALEJANDRA - Last Filed: 12/31/18 07:28> Is pt being admited?: No Does the pt Need Aspirin: No <ROBBY PEDRO - Last Filed: 01/02/19 20:17> Clinical Impression: General medical exam Disposition: - TO HOME OR SELFCARE Condition: Stable Instructions: Anxiety (ED) Additional Instructions: Please follow up with your primary care provider and mental health provider. I have listed information below for your convenience. Referrals: OSCAR GUERRERO MD [Primary Care Provider] - 3-5 Days [facility] [Outside] - 3-5 Days Forms: Accompanied Note, Work/School Release Form(ED)
== END 2018-12-28 06:50 | disposition home or self-care (01) ==
LOC: ED 05:09
DX: F41.9 Anxiety disorder, unspecified (principal); I10 Essential (primary) hypertension; E10.9 Type 1 diabetes mellitus without complications; F17.200 Nicotine dependence, unspecified, uncomplicated
CPT/HCPCS: 82962; 99282

== ENCOUNTER 2022-05-08 05:09 | Emergency (ER) | payer MEDICAID ==
[2022-05-08] MEDS ORDERED: ONDANSETRON 4 MG/2 ML INJ IV ONE ×2 (05:41→08:05)
[2022-05-08] MEDS ORDERED: MORPHINE 4 MG/1 ML INJ IV ONE (05:46)
[2022-05-08] MEDS ORDERED: SODIUM CHLORIDE 0.9% 1000 ML 1,000 ML IV ONE (06:01)
[2022-05-08] MEDS ORDERED: METOCLOPRAMIDE 10 MG/2 ML INJ IV ONE (06:17)
[2022-05-08] MEDS ORDERED: ALUM-MAG HYDROXIDE-SIMETHICONE 200-200-20MG/5ML ORAL LIQD 30 ML PO ONE (06:17)
[2022-05-08] MEDS ORDERED: PANTOPRAZOLE 40 MG INJ IV ONE (06:17)
[2022-05-08] MEDS ORDERED: LIDOCAINE VISCOUS 2% 15 ML ORAL LIQD PO ONE (06:17)
--- NOTE | 2022-05-08 06:22 | Emergency Department Report ---
ED Abdominal Pain HPI - General Chief Complaint: Nausea/Vomiting/Diarrhea Stated Complaint: ANXIETY Time Seen by Provider: 05/08/22 06:00 Source: patient, family Mode of arrival: Ambulatory Limitations: No Limitations - History of Present Illness Initial Comments: Patient is a 26-year-old female presenting to ED with complaint of nausea, vomiting and abdominal pain. States this has been going on for roughly a month. States she went to outside facility a few weeks ago after an episode of hematemesis. She underwent endoscopy that revealed "swelling in her intestines ". She is accompanied by her brother who reports that she has essentially no appetite and has lost a significant amount of weight over the past month. He reports history of depression. Severity scale (0 -10): 10 - Related Data Home Medications Medication Instructions Recorded Confirmed Last Taken Metoprolol [Lopressor] 10 mg PO DAILY 12/04/18 12/04/18 Unknown Previous Rx's Medication Instructions Recorded Last Taken Type Prochlorperazine Maleate 10 mg PO Q6HR #10 05/08/22 Unknown Rx [Compazine] Allergies Allergy/AdvReac Type Severity Reaction Status Date / Time No Known Allergies Allergy Unverified 06/11/17 16:48 ED Review of Systems ROS: Stated complaint: ANXIETY Other details as noted in HPI Constitutional: malaise Respiratory: denies: cough, shortness of breath, wheezing Cardiovascular: denies: chest pain, palpitations Gastrointestinal: abdominal pain, nausea, vomiting, hematemesis Genitourinary: denies: urgency, dysuria, discharge Musculoskeletal: denies: back pain, joint swelling, arthralgia Skin: denies: rash, lesions Neurological: denies: headache, weakness, paresthesias Psychiatric: denies: anxiety, depression ED Past Medical Hx - Past Medical History Previous Medical History?: Yes Hx Hypertension: Yes Hx Diabetes: Yes (states Type I but states no meds) Hx Deep Vein Thrombosis: No Hx Renal Disease: No Hx Sickle Cell Disease: No Hx Seizures: Yes Hx Asthma: No Hx HIV: No - Surgical History Past Surgical History?: Yes Additional Surgical History: cyst removal at both arms and lower abdomen - Social History Smoking Status: Current Every Day Smoker Substance Use Type: None - Medications Home Medications: Home Medications Medication Instructions Recorded Confirmed Last Taken Type Metoprolol [Lopressor] 10 mg PO DAILY 12/04/18 12/04/18 Unknown History Prochlorperazine Maleate 10 mg PO Q6HR #10 05/08/22 Unknown Rx [Compazine] ED Physical Exam - General Limitations: No Limitations General appearance: alert, in no apparent distress - Head Head exam: Present: atraumatic, normocephalic - Respiratory Respiratory exam: Present: normal lung sounds bilaterally. Absent: respiratory distress - Cardiovascular Cardiovascular Exam: Present: regular rate, normal rhythm, normal heart sounds - GI/Abdominal GI/Abdominal exam: Present: soft, tenderness (Mild diffuse tenderness). Absent: distended, guarding, rebound - Neurological Exam Neurological exam: Present: alert, oriented X3 - Psychiatric Psychiatric exam: Present: normal affect, normal mood - Skin Skin exam: Present: warm, dry, intact, normal color ED Course Vital Signs 05/08/22 05/08/22 05/08/22 05:10 05:44 06:47 Temperature 98 F 98.2 F Pulse Rate 106 H 107 H Respiratory 18 21 Rate Blood Pressure 151/92 Blood Pressure 151/92 [Left] O2 Sat by Pulse 100 100 97 Oximetry 05/08/22 05/08/22 08:27 10:31 Temperature Pulse Rate 106 H 85 Respiratory 18 18 Rate Blood Pressure Blood Pressure 156/102 146/96 [Left] O2 Sat by Pulse 99 99 Oximetry ED Medical Decision Making - Lab Data Result diagrams: 05/08/22 05:57 05/08/22 05:57 - Medical Decision Making Patient presenting with complaint of nausea vomiting and abdominal pain. She was given 1 L normal saline along with IV Zofran followed by GI cocktail. CMP grossly unremarkable except for potassium of 2.8. Likely from excessive vomiting. Patient was given 20 mEq KCl piggyback. She was also given Compazine and Benadryl as her nausea was still present on initial reassessment. Will discharge home on Compazine to take as needed for nausea. Critical care attestation.: If time is entered above; I have spent that time in minutes in the direct care of this critically ill patient, excluding procedure time. ED Disposition Clinical Impression: Nausea and vomiting Disposition: 01 HOME / SELF CARE / HOMELESS Is pt being admited?: No Condition: Stable Instructions: Nausea and Vomiting, Adult Additional Instructions: Please follow-up with your PCP and/or primer inserting machine adjuster as needed. You may ret urn if your symptoms worsen.
[2022-05-08 07:11] LABS: Basophils # (Auto) 0.2 K/mm3 (0.0-0.1); Basophils % (Auto) 1.7 % (0.0-1.8); Eosinophils % (Auto) 0.1 % (0.0-4.3); Hematocrit 33.3 % (30.3-42.9); Hemoglobin 10.7 gm/dl (10.1-14.3); Lymphocytes # (Auto) 1.4 K/mm3 (1.2-5.4); Lymphocytes % (Auto) 14.8 % (13.4-35.0); Mean Corpuscular HGB Conc 32 % (30-34); Mean Corpuscular Volume 71 fl (79-97); Monocytes # (Auto) 0.3 K/mm3 (0.0-0.8); Platelet Count 507 K/mm3 (140-440); Red Blood Count 4.72 M/mm3 (3.65-5.03); Red Cell Distribution Width 19.2 % (13.2-15.2)
[2022-05-08 07:21] LABS: Bilirubin,Urine NEG (Negative); Blood,Urine NEG (Negative); Color,Urine Yellow (Yellow)
[2022-05-08 07:22] LABS: Mucus,Urine 1+ /HPF
[2022-05-08 07:26] LABS: Alanine Aminotransferase 6 units/L (7-56); Albumin 4.2 g/dL (3.9-5); Blood Urea Nitrogen 4 mg/dL (7-17); Calcium 9.4 mg/dL (8.4-10.2); Hemolysis Index 0
[2022-05-08 07:30] LABS: BUN/Creatinine Ratio 7
[2022-05-08] MEDS ORDERED: PROMETHAZINE 25 MG TAB PO ONE (08:04)
[2022-05-08] MEDS ORDERED: PROCHLORPERAZINE EDISYLATE 10 MG/2 ML VIAL IV ONE (08:37)
[2022-05-08] MEDS ORDERED: diphenhydrAMINE 50 MG/ML VIAL IV ONE (08:37)
[2022-05-08] MEDS: POTASSIUM CHLORIDE 10 MEQ 10 MEQ/100 ML BAG IV SCH ×2 (09:00→09:42)
[2022-05-08 10:32] VITALS: BP 146/96
== END 2022-05-08 11:19 | disposition home or self-care (01) ==
LOC: ED 05:09
DX: R11.2 Nausea with vomiting, unspecified (principal); I10 Essential (primary) hypertension; E10.8 Type 1 diabetes mellitus with unspecified complications; R56.9 Unspecified convulsions; Z98.890 Other specified postprocedural states; F17.290 Nicotine dependence, other tobacco product, uncomplicated
CPT/HCPCS: 36415; 80053; 81001; 82962; 83690; 84703; 85025; 96361; 96365; 96375; 96376; 99284; C9113; J0780; J1200; J2270; J2405; J2765; J3480; J7030